=== PATIENT | female | born 1945 | race Two or more races ===

== ENCOUNTER 2017-12-17 16:15 | Emergency (ER) | payer OTHER ==
[~2017-12-17] VITALS: Ht 160 cm; Wt 82.6 kg
--- NOTE | 2017-12-17 16:20 | NUR ---
AAOX3, [facility], PT WAS SENT FROM URGENT CARE FOR TONGUE SWELLING AND DIFFICULTY TALKING SINCE 11AM TODAY. RR IS EVEN AND UNLABORED WITH NAD NOTED. SKIN IS WARM AND DRY. AWAITING MD FOR EVAL.
[2017-12-17] MEDS ORDERED: diphenhydrAMINE HCL 50 MG/ML VIAL IV ONE (16:30)
[2017-12-17] MEDS ORDERED: methylPREDNISolone SOD SUCC 125 MG/2ML VIAL IV ONE (16:30)
[2017-12-17] MEDS ORDERED: diphenhydrAMINE HCL 50 MG/ML VIAL ONE (16:32)
[2017-12-17] MEDS ORDERED: methylPREDNISolone SOD SUCC 125 MG/2ML VIAL ONE (16:32)
[2017-12-17 16:47] LABS: BASOPHILS % (AUTO) 0.3 % (0.0-2.0); EOSINOPHILS # (AUTO) 0.3 /CMM (0.0-0.7); EOSINOPHILS % (AUTO) 4.1 % (0.0-6.0); HEMATOCRIT 38 % (33-45); HEMOGLOBIN 12.7 g/dL (11.5-14.8); LYMPHOCYTES # (AUTO) 1.5 /CMM (0.8-4.8); LYMPHOCYTES % (AUTO) 22.5 % (20.0-44.0); MEAN CORPUSCULAR HEMOGLOBIN 29 PG (26.0-33.0); MEAN CORPUSCULAR HGB CONC 34 g/dl (31.0-36.0); MEAN CORPUSCULAR VOLUME 85 fL (82-100); MONOCYTES # (AUTO) 0.4 /CMM (0.1-1.30); NEUTROPHILS # (AUTO) 4.4 /CMM (1.8-8.9); NEUTROPHILS % (AUTO) 67.1 % (43.0-81.0); PLATELET COUNT (AUTO) 186 /CMM (150-450); RED BLOOD CELL COUNT(AUTO) 4.41 MIL/uL (4.0-5.2); WHITE BLOOD COUNT (AUTO) 6.6 K/uL (4.3-11.0)
[2017-12-17 16:56] LABS: CALCIUM, SERUM 7.9 mg/dL (8.5-10.1); CARBON DIOXIDE 30 mmol/L (21-32); CHLORIDE 103 mmol/L (98-107); CREATININE 0.9 mg/dL (0.6-1.3); GLUCOSE 249 mg/dL (74-106); POTASSIUM 3.6 mmol/L (3.5-5.1); SODIUM SERUM 140 mmol/L (136-145); UREA NITROGEN, BLOOD 12 mg/dL (7-18)
--- NOTE | 2017-12-17 17:58 | NUR ---
DR GAXIOLA AT BS FOR AN UPDATE AND RE-EVAL.
--- NOTE | 2017-12-17 18:00 | NUR ---
IV removed. Catheter intact and site benign. Pressure and 4x4 applied to site. No bleeding noted.Patient discharged to home in stable condition. Written and verbal after care instructions given. Patient verbalizes understanding of instruction.
[2017-12-17 18:06] VITALS: BP 154/81
== END 2017-12-17 18:11 | disposition home or self-care (01) ==
LOC: ER 16:16
DX: T78.3XXA Angioneurotic edema, initial encounter (principal); I10 Essential (primary) hypertension; E11.9 Type 2 diabetes mellitus without complications
CPT/HCPCS: 36415; 80048; 85025; 96374; 96375; 99284; A4606; J1200; J2930; Z7610

== ENCOUNTER 2018-04-16 12:30 | Emergency (ER) | payer OTHER ==
[~2018-04-16] VITALS: Ht 162.6 cm; Wt 81.6 kg
--- NOTE | 2018-04-16 12:34 | NUR ---
[facility]ILY FOR EPISODE OF HIGH BP 250/98 NOTED CHECKED 1 HR AGO, PT IS COMPLAINING OF HEADACHE. DENIES CP/SOB. ASSISTED TO ED BED 16, GOWNED AND PLACED ON MONITOR. ALL NEEDS ARE ATTENED, WILL CONT TO MONITOR
[2018-04-16] MEDS ORDERED: METOPROLOL TARTRATE 25 MG TABLET ONE (12:59)
[2018-04-16] MEDS ORDERED: METOPROLOL TARTRATE 25 MG TABLET PO ONE (13:00)
--- NOTE | 2018-04-16 13:02 | NUR ---
[facility] OPERATOR AT BEDSIDE FOR BLOOD DRAW. PATIENT MEDICATED PER MD ORDERS.
[2018-04-16 13:04] LABS: BASOPHILS % (AUTO) 0.7 % (0.0-2.0); EOSINOPHILS % (AUTO) 3.1 % (0.0-6.0); HEMATOCRIT 37 % (33-45); HEMOGLOBIN 12.6 g/dL (11.5-14.8); LYMPHOCYTES # (AUTO) 1.7 /CMM (0.8-4.8); LYMPHOCYTES % (AUTO) 25.3 % (20.0-44.0); MEAN CORPUSCULAR HEMOGLOBIN 29 PG (26.0-33.0); MEAN CORPUSCULAR HGB CONC 34 g/dl (31.0-36.0); MEAN CORPUSCULAR VOLUME 85 fL (82-100); MONOCYTES # (AUTO) 0.4 /CMM (0.1-1.30); MONOCYTES % (AUTO) 5.5 % (2.0-12.0); NEUTROPHILS # (AUTO) 4.3 /CMM (1.8-8.9); NEUTROPHILS % (AUTO) 65.4 % (43.0-81.0); PLATELET COUNT (AUTO) 166 /CMM (150-450); RDW COEFFICIENT OF VARIATION 14.2 (11.5-15.0); RED BLOOD CELL COUNT(AUTO) 4.32 MIL/uL (4.0-5.2); WHITE BLOOD COUNT (AUTO) 6.6 K/uL (4.3-11.0)
[2018-04-16 13:14] LABS: CALCIUM, SERUM 8.6 mg/dL (8.5-10.1); CARBON DIOXIDE 30 mmol/L (21-32); CHLORIDE 104 mmol/L (98-107); CREATININE 0.8 mg/dL (0.6-1.3); GLUCOSE 202 mg/dL (74-106); SODIUM SERUM 138 mmol/L (136-145); UREA NITROGEN, BLOOD 13 mg/dL (7-18)
[2018-04-16] MEDS ORDERED: IBUPROFEN 600 MG TABLET PO ONE ×2 (14:47→15:00)
[2018-04-16 15:05] VITALS: BP 156/84
--- NOTE | 2018-04-16 15:07 | NUR ---
Patient discharged to home in stable condition. Written and verbal after care instructions given. Patient verbalizes understanding of instruction.
== END 2018-04-16 15:06 | disposition home or self-care (01) ==
LOC: ER 12:32
DX: I10 Essential (primary) hypertension (principal); R51 Headache; E11.9 Type 2 diabetes mellitus without complications
CPT/HCPCS: 36415; 80048-TC; 84484-TC; 85025-TC; A4606; Z7610

== ENCOUNTER 2021-04-05 21:21 | Emergency (ER) | payer OTHER ==
[~2021-04-05] VITALS: Ht 157.5 cm; Wt 77.1 kg
--- NOTE | 2021-04-05 21:30 | NUR ---
PATIENT GIANFRANCO 74 FROM HOME FOR C/O POSTERIOR HEAD LACERATION AND BUMP S/P FALL BACKWARD AND HIT THE HEAD TO THE CORNER OF A TABLE. -KO, -N/V. PATIENT WELSH SPEAKIING A/OX4, RR EVEN AND UNLABORED. PATIENT CONNECETD TO [employer]IFICIAL [employer]KER AND POX.
--- NOTE | 2021-04-05 21:41 | NUR ---
PATIENT TO CT
[2021-04-05] MEDS ORDERED: LIDOCAINE 1%-EPI 1:100,000 20 ML VIAL ONE (21:48)
[2021-04-05] MEDS: LIDOCAINE 1%-EPI 1:100,000 20 ML VIAL TP ONE ×2 (22:11→22:13)
[2021-04-05] MEDS ORDERED: ACETAMINOPHEN 325 MG TABLET ONE (22:38)
[2021-04-05 22:43] VITALS: BP 155/89
--- NOTE | 2021-04-05 23:07 | NUR ---
Patient discharged to home in stable condition. Written and verbal after care instructions given. Patient verbalizes understanding of instruction.
== END 2021-04-05 23:08 | disposition home or self-care (01) ==
LOC: ER 21:26
DX: S01.01XA Laceration without foreign body of scalp, initial encounter (principal); M47.9 Spondylosis, unspecified; E11.65 Type 2 diabetes mellitus with hyperglycemia; I10 Essential (primary) hypertension; W18.39XA Other fall on same level, initial encounter; Y93.89 Activity, other specified; Y92.89 Other specified places as the place of occurrence of the external cause; Y99.8 Other external cause status
CPT/HCPCS: 12002; 70450; 72125; 82962; 99285; J3490

== ENCOUNTER 2022-09-30 16:27 | Emergency (ER) | payer OTHER ==
[~2022-09-30] VITALS: Ht 160 cm; Wt 77.1 kg
--- NOTE | 2022-09-30 16:30 | NUR ---
RECEIVED PT 77 YRS FEMALE CAME BY PRAMIDIC S/P FALL BACKWARD AND [place]ALINA HEAD IN FLOOR AWAKE AND ALERT NO WEEKNESS
--- NOTE | 2022-09-30 16:45 | NUR ---
SEEN BY DR. MILLS
[2022-09-30] MEDS ORDERED: ACETAMINOPHEN ES 500 MG TABLET ONE (17:13)
--- NOTE | 2022-09-30 17:16 | NUR ---
TO CT SCAN OF HEAD
[2022-09-30] MEDS ORDERED: ACETAMINOPHEN ES 500 MG TABLET PO ONE (17:30)
--- NOTE | 2022-09-30 17:40 | NUR ---
BACK FROM CT DONE
--- NOTE | 2022-09-30 18:35 | NUR ---
Patient discharged to home in stable condition. Written and verbal after care instructions given. Patient verbalizes understanding of instruction.
[2022-09-30 18:52] VITALS: BP 124/56
== END 2022-09-30 18:53 | disposition home or self-care (01) ==
LOC: ER 16:28
DX: S00.03XA Contusion of scalp, initial encounter (principal); I10 Essential (primary) hypertension; E11.9 Type 2 diabetes mellitus without complications; W18.39XA Other fall on same level, initial encounter; Y93.01 Activity, walking, marching and hiking; Y92.89 Other specified places as the place of occurrence of the external cause; Y99.8 Other external cause status
CPT/HCPCS: 70450-TC; 73030-TC